=== PATIENT | male | born 1990 | race Caucasian/White ===

== ENCOUNTER 2017-04-27 17:27 | Emergency (ER) | payer SELFPAY ==
[~2017-04-27] VITALS: Ht 188 cm; Wt 89.8 kg
[2017-04-27 17:57] VITALS: BP_SYST 141
[2017-04-27 18:28] LABS: BASOPHILS # (AUTO) 0.1 K/uL (0.0-0.2); BASOPHILS % (AUTO) 0.7 % (0.0-2.0); EOSINOPHILS # (AUTO) 0.1 K/uL (0.0-0.4); EOSINOPHILS % (AUTO) 0.8 % (0.0-4.0); HEMOGLOBIN 15.6 g/dL (14.0-18.0); LYMPHOCYTES # (AUTO) 2.6 K/uL (1.0-5.5); MEAN CORPUSCULAR HEMOGLOBIN 27 pg (27-31); MEAN CORPUSCULAR HGB CONC 32 % (32-36); MEAN CORPUSCULAR VOLUME 84 fL (79.0-98.0); MONOCYTES # (AUTO) 0.4 K/uL (0.0-1.0); MONOCYTES % (AUTO) 5.9 % (1.7-9.3); NEUTROPHILS # (AUTO) 4.3 K/uL (1.8-7.7); NEUTROPHILS % (AUTO) 58.6 % (40.0-70.0); PLATELET COUNT (AUTO) 382 K/uL (130-430); RED BLOOD CELL COUNT(AUTO) 5.84 MIL/uL (4.2-6.2); RED CELL DISTRIBUTION WIDTH 12.7 % (9.0-15.0); WHITE BLOOD COUNT (AUTO) 7.5 K/uL (4.8-10.8)
[2017-04-27 18:33] LABS: CALCIUM 9.3 mg/dL (8.4-11.0); CREATININE 1.12 mg/dL (0.55-1.30); POTASSIUM 4.2 mmol/L (3.5-5.1)
[2017-04-27 18:37] LABS: BILIRUBIN,URINE NEGATIVE (NEGATIVE); BLOOD, URINE NEGATIVE (NEGATIVE); CLARITY/URINE CLEAR (CLEAR); COLOR,URINE YELLOW (YELLOW); GLUCOSE,URINE NEGATIVE (NEGATIVE); KETONES,URINE 1+ (NEGATIVE); LEUKOCYTE ESTERASE ,URINE NEGATIVE (NEGATIVE); NITRITE, URINE NEGATIVE (NEGATIVE); PROTEIN URINE NEGATIVE (NEGATIVE); UROBILINOGEN,URINE 0.2 (0.2-1.0)
[2017-04-27 18:38] LABS: ALBUMIN 4.5 g/dL (3.4-4.8); TOTAL BILIRUBIN 1.3 mg/dL (0.0-1.0); TOTAL PROTEIN, SERUM 8.4 g/dL (6.4-8.3)
[2017-04-27] MEDS ORDERED: KETOROLAC TROMETHAMINE 30 MG VIAL IVP ONE (18:45)
[2017-04-27] MEDS ORDERED: ONDANSETRON HCL 4 MG/2 ML VIAL IVP ONE (18:45)
[2017-04-27] MEDS ORDERED: NACL 0.9% 1,000 ML IV ONE (18:45)
[2017-04-27 19:57] LABS: BARBITURATE, URINE NEGATIVE (NEG <=200); BENZODIAZEPINE, URINE NEGATIVE (NEG <=150); CANNABINOID, URINE POSITIVE (NEG <=50); COCAINE, URINE NEGATIVE (NEG <=150); METHAMPHETAMINES SCREEN,URINE NEGATIVE (NEG <=500); OPIATE, URINE NEGATIVE (NEG <=100); PHENCYCLIDINE SCREEN,URINE NEGATIVE (NEG <=25); UR TRICYCLIC ANTIDEPRESSANTS NEGATIVE (NEG <=300); URINE AMPHETAMINE NEGATIVE (NEG <=500); URINE METHADONE NEGATIVE (NEG <=200); URINE OXYCODONE SCREEN NEGATIVE (NEG <=100); URINE PROPOXYPHENE SCREEN NEGATIVE (NEG <=300)
[2017-04-27 20:45] VITALS: BP_SYST 113
== END 2017-04-27 20:45 | disposition home or self-care (01) ==
LOC: SED 17:27
DX: B34.9 Viral infection, unspecified (principal); R63.0 Anorexia; Z88.5 Allergy status to narcotic agent; Z87.891 Personal history of nicotine dependence
CPT/HCPCS: 36415; 71010; 74020; 80053; 80307; 81003; 83690; 85025; 93005; 96361; 96374; 96375; 99285; J1885; J2405; J7030

== ENCOUNTER 2018-07-10 19:11 | Emergency (ER) | payer BC ==
[~2018-07-10] VITALS: Ht 188 cm; Wt 95.7 kg
[2018-07-10 19:19] VITALS: BP_SYST 132
[2018-07-10 19:36] LABS: BILIRUBIN,URINE NEGATIVE (NEGATIVE); BLOOD, URINE NEGATIVE (NEGATIVE); CLARITY/URINE CLEAR (CLEAR); COLOR,URINE YELLOW (YELLOW); GLUCOSE,URINE NEGATIVE (NEGATIVE); KETONES,URINE NEGATIVE (NEGATIVE); LEUKOCYTE ESTERASE ,URINE NEGATIVE (NEGATIVE); NITRITE, URINE NEGATIVE (NEGATIVE); PH,URINE 6.5 (5.0-8.0); PROTEIN URINE NEGATIVE (NEGATIVE); UROBILINOGEN,URINE 0.2 (0.2-1.0)
--- NOTE | 2018-07-10 21:21 | NUR ---
Patient to ER bed 08 to gown for evaluation. Side rails up. Report received from JACK Moffett
--- NOTE | 2018-07-10 21:37 | NUR ---
Patient brought in with complaining of testicular pain x 5 days worsening. Denies any nausea, vomiting or diarrhea. Pain 8/10. No other complaints/injuries per patient or as noted. Will continue to monitor.
--- NOTE | 2018-07-10 21:45 | NUR ---
ER Dr. Salinas at bedside examining patient.
[2018-07-10 22:31] VITALS: BP_SYST 132
--- NOTE | 2018-07-10 22:31 | NUR ---
Patient given written and verbal discharge instructions and verbalizes understanding. ER MD discussed with patient the results and treatment provided. Patient in stable condition. ID arm band removed. No Rx given. Patient educated on pain management and to follow up with PMD in 2-3 days. Pain Scale 0/10 Opportunity for questions provided and answered.
== END 2018-07-10 22:31 | disposition home or self-care (01) ==
LOC: SED 19:11
DX: S39.011A Strain of muscle, fascia and tendon of abdomen, initial encounter (principal); E78.00 Pure hypercholesterolemia, unspecified; R03.0 Elevated blood-pressure reading, without diagnosis of hypertension; Z88.6 Allergy status to analgesic agent; X58.XXXA Exposure to other specified factors, initial encounter; Y93.89 Activity, other specified; Y92.89 Other specified places as the place of occurrence of the external cause; Y99.8 Other external cause status
CPT/HCPCS: 76870-TC; 81003; 99285

== ENCOUNTER 2021-05-07 11:56 | Emergency (ER) | payer BC, SELFPAY ==
[~2021-05-07] VITALS: Ht 190.5 cm; Wt 104.3 kg
[2021-05-07 11:56] VITALS: BP_SYST 123
--- NOTE | 2021-05-07 11:56 | NUR ---
BROUGHT BACK TO ER OUTSIDE TENT AND TRIAGED. WILL ASSUME CARE
--- NOTE | 2021-05-07 12:00 | NUR ---
PT STATES HE WAS + FOR COVID 2 DAYS AGO, STATES HE HAS FELT HORRIBLE FOR 1 WEEK. STATES CONGESTION, BODY ACHES, LOSS OF SMELL AND TASTE, FEVER/CHILLS, FATIGUE, VOMITING.
--- NOTE | 2021-05-07 12:02 | NUR ---
DR MARIN OUT TO TENT TO EVALUATE PT.
[2021-05-07] MEDS ORDERED: ALBU8.5H8 INH (12:44)
[2021-05-07] MEDS ORDERED: PRED20TA PO (12:44)
--- NOTE | 2021-05-07 13:09 | NUR ---
Patient given written and verbal discharge instructions and verbalizes understanding. ER MD discussed with patient the results and treatment provided. Patient in stable condition. ID arm band removed. Rx of PROAIR, PREDNISONE given. Patient educated on pain management and to follow up with PMD. Pain Scale 0/10. Opportunity for questions provided and answered. Medication side effect fact sheet provided.
== END 2021-05-07 13:09 | disposition home or self-care (01) ==
LOC: SED 11:56
DX: U07.1 COVID-19 (principal); J40 Bronchitis, not specified as acute or chronic; E78.00 Pure hypercholesterolemia, unspecified; Z88.8 Allergy status to other drugs, medicaments and biological substances
CPT/HCPCS: 71045; 99283

== ENCOUNTER 2021-05-09 06:34 | Emergency (ER) | payer BC, SELFPAY ==
[~2021-05-09] VITALS: Ht 190.5 cm; Wt 99.8 kg
[~2021-05-09 06:34] MED LIST: ALBU8.5H8 INH; PRED20TA PO
[2021-05-09 06:40] VITALS: BP_SYST 119
--- NOTE | 2021-05-09 07:00 | NUR ---
Pt triaged and placed in tent.
--- NOTE | 2021-05-09 07:25 | NUR ---
Pt walked in to ER with c/o abdominal pain, n/v x 3days. Reports being covid +, denies any SOB or respiratory distress noted. V/S stable.
[2021-05-09] MEDS: ONDANSETRON 4 MG ODT TAB PO ONE (08:08)
[2021-05-09] MEDS ORDERED: ONDANSETRON 4 MG ODT TAB ONE (08:11)
--- NOTE | 2021-05-09 09:30 | NUR ---
LAWRENCE Ruano at bedside examining patient.
[2021-05-09] MEDS ORDERED: ACETAMINOPHEN 500 MG TABLET ONE (09:44)
[2021-05-09] MEDS ORDERED: DEXAMETHASONE SOD PHOSPHATE 4 MG/ML VIAL IM ONE (11:00)
[2021-05-09] MEDS ORDERED: MAG HYDROX/AL HYDROX/SIMETH 30 ML, LIDOCAINE VISCOUS 2% 15ML (PO) 15 ML, DICYCLOMINE HC... PO ONE ×3 (11:00)
[2021-05-09] MEDS ORDERED: OMEP40CA13 PO (12:20)
[2021-05-09] MEDS ORDERED: PHEN16.236 PO (12:26)
[2021-05-09] MEDS ORDERED: ANT30 PO (12:26)
[2021-05-09] MEDS ORDERED: ONDA-8 TL (12:26)
--- NOTE | 2021-05-09 14:00 | NUR ---
Patient given written and verbal discharge instructions and verbalizes understanding. ER MD discussed with patient the results and treatment provided. Patient in stable condition. ID arm band removed. No prescriptions given. Patient educated on pain management and to follow up with PMD. Pain Scale 0. Opportunity for questions provided and answered. Medication side effect fact sheet provided.
[2021-05-09 16:30] VITALS: BP_SYST 119
== END 2021-05-09 14:00 | disposition home or self-care (01) ==
LOC: SED 06:34
DX: U07.1 COVID-19 (principal); K29.50 Unspecified chronic gastritis without bleeding; K21.9 Gastro-esophageal reflux disease without esophagitis; E78.00 Pure hypercholesterolemia, unspecified; Z79.899 Other long term (current) drug therapy; Z88.8 Allergy status to other drugs, medicaments and biological substances
CPT/HCPCS: 96372; 99284; J1100; J2001; Q0162